=== PATIENT | male | born 1940 | race African-American/Black ===

== ENCOUNTER 2025-02-21 16:57 | Inpatient (IN) | payer OTHER, MEDICARE ==
[~2025-02-21] VITALS: Ht 170.2 cm; Wt 81.6 kg
[2025-02-21] MEDS ORDERED: KETOROLAC 30MG/ML VIAL IV ONE (17:15)
[2025-02-21 18:50] LABS: PLATELET 226 x1000/uL (130-400); RED BLOOD CELL COUNT 3.74 mill/uL (4.7-6.1); RED CELL DISTRIBUTION WIDTH 15.5 % (11.6-14.6)
[2025-02-21] MEDS: KETOROLAC 30MG/ML VIAL IV NR (18:58)
[2025-02-21] MEDS: MORPHINE SULFATE 2 MG/ML INJ (NOT FOR IM USE) IV NR (18:59)
[2025-02-21 19:09] LABS: CREATININE 1.4 mg/dL (0.6-1.3); UREA NITROGEN BLOOD 25.0 mg/dL (9-23)
[2025-02-21 19:23] LABS: INR 1.0
[2025-02-21] MEDS: FUROSEMIDE 100MG/10ML VIAL IV NR (19:59)
[2025-02-21] MEDS: INSULIN REGULAR (HUMULIN R) 1000UNITS/10ML VIAL IV NR (20:02)
[2025-02-21] MEDS: DEXTROSE 50% WATER 50ML SYRINGE IV NR (20:05)
[2025-02-21] MEDS: CALCIUM GLUCONATE 1GM PREMIX 50 ML IV NR (20:17)
[2025-02-21] MEDS ORDERED: IPRATROPIUM/ALBUTEROL 0.5-3(2.5)MG/3ML NEB HHN PRN (20:30)
[2025-02-21] MEDS ORDERED: CLONIDINE 0.1MG TABLET PO PRN (20:30)
[2025-02-21] MEDS ORDERED: ONDANSETRON HCL 4MG/2ML INJ IV PRN (20:30)
[2025-02-21] MEDS ORDERED: DOCUSATE SODIUM 100MG CAPSULE PO PRN (20:30)
[2025-02-21] MEDS ORDERED: ACETAMINOPHEN 325MG TABLET PO PRN ×2 (20:30)
[2025-02-21] MEDS ORDERED: GUAIFENESIN 200MG/10ML SUGAR FREE UDC PO PRN (20:30)
[2025-02-21 20:38] LABS: CREATININE 1.6 mg/dL (0.6-1.3); UREA NITROGEN BLOOD 27.0 mg/dL (9-23)
[2025-02-21] MEDS: SODIUM CHLORIDE 0.9% 1,000 ML IV SCH (20:43)
[2025-02-21 21:28] VITALS: PULSE 72; RESP 20; O2SAT 96
[2025-02-21] MEDS: ALBUTEROL (0.083%) 2.5MG/3ML NEB HHN SCH (21:28)
[2025-02-21] MEDS ORDERED: SODIUM POLYSTYRENE SULFONATE 15 G/60 ML BOT PO NR (21:45)
[2025-02-21 22:08] VITALS: BP 117/59; PULSE 81; RESP 17; TEMP 37; O2SAT 97
[2025-02-21 22:20] VITALS: BP 117/59; PULSE 81; RESP 17; TEMP 37.0296
[2025-02-21 23:09] LABS: TROPONIN I HIGH SENSITIVITY 5 ng/L (3.0-53)
[2025-02-22] VITALS: BP 103/56; PULSE 91; RESP 17; TEMP 36.3; O2SAT 97
[2025-02-22] MEDS ORDERED: ALLO100T PO (02:12)
[2025-02-22] MEDS ORDERED: FLUT1BLS9 IH (02:12)
[2025-02-22] MEDS ORDERED: ATOR-2 PO (02:12)
[2025-02-22] MEDS ORDERED: TAMS-54 (02:12)
[2025-02-22] MEDS ORDERED: LISI-648 (02:12)
[2025-02-22 04:00] VITALS: BP 119/69; PULSE 89; RESP 16; TEMP 37; O2SAT 95
[2025-02-22 06:31] LABS: BASOPHILS % 0.5 % (0.0-2.0); EOSINOPHILS % 0.5 % (0.0-5.0); HEMATOCRIT. 30.1 % (42.0-52.0); HEMOGLOBIN. 9.4 g/dL (14.0-18.0); LYMPHOCYTES % 8.9 % (20.0-50.0); MEAN PLATELET VOLUME 7.9 fl (7.4-10.4); MONOCYTES % 8.9 % (2.0-8.0); NEUTROPHILS % 81.2 % (40.0-76.0); PLATELET 192 x1000/uL (130-400); RED BLOOD CELL COUNT 3.48 mill/uL (4.7-6.1); RED CELL DISTRIBUTION WIDTH 15.7 % (11.6-14.6)
[2025-02-22 06:56] LABS: TRIGLYCERIDE 29 mg/dL (0-150)
[2025-02-22 06:57] LABS: CREATININE 1.4 mg/dL (0.6-1.3); UREA NITROGEN BLOOD 25 mg/dL (9-23)
[2025-02-22 06:58] LABS: LDL CHOLESTEROL 29 mg/dL (5-100)
[2025-02-22 06:59] LABS: ASPARTATE AMINOTRANSFERASE 16 IU/L (<34); BILIRUBIN DIRECT 0.2 mg/dL (<=3.0)
[2025-02-22 07:00] LABS: BILIRUBIN TOTAL 0.7 mg/dL (0.1-1.0); PROTEIN TOTAL 5.6 g/dL (6.0-8.3)
[2025-02-22 08:00] VITALS: BP 137/78; PULSE 81; RESP 18; TEMP 36.1; O2SAT 98
[2025-02-22] MEDS: ENOXAPARIN 30MG/0.3ML SYR SUBCUT SCH (08:51)
[2025-02-22 12:00] VITALS: BP 129/72; PULSE 89; RESP 18; TEMP 36.5; O2SAT 97
[2025-02-22] MEDS ORDERED: DEXTROSE 50% WATER 50ML SYRINGE IV SCH (13:15)
[2025-02-22] MEDS: INSULIN REGULAR (HUMULIN R) 1000UNITS/10ML VIAL IV SCH (13:15)
[2025-02-22] MEDS: SODIUM ZIRCONIUM CYCLOSILICATE 10GM/PACKET PO SCH (14:11)
[2025-02-22] MEDS ORDERED: LACTULOSE 20G/30ML UDC PO PRN (15:00)
[2025-02-22 16:00] VITALS: BP 136/68; PULSE 86; RESP 17; TEMP 35.8; O2SAT 97
[2025-02-22] MEDS: FERROUS SULFATE 325MG TABLET PO SCH (16:38)
[2025-02-22 20:00] VITALS: BP 132/79; PULSE 85; RESP 16; TEMP 36.4; O2SAT 95
[2025-02-22 23:01] LABS: CLARITY URINE CLEAR (CLEAR); COLOR URINE YELLOW (YELLOW); GLUCOSE URINE NEGATIVE (NEGATIVE); KETONES URINE NEGATIVE (NEGATIVE); LEUKOCYTE ESTERASE URINE NEGATIVE (NEGATIVE); NITRITE URINE NEGATIVE (NEGATIVE); OCCULT BLOOD URINE NEGATIVE (NEGATIVE); PH URINE 5.0 (4.5-8.0); PROTEIN URINE NEGATIVE (NEGATIVE); SPECIFIC GRAVITY URINE 1.015 (1.005-1.030); UROBILINOGEN URINE 0.2 E.U./dL (0.2-1.0)
[2025-02-23] VITALS: BP 138/77; PULSE 84; RESP 17; TEMP 36.2
[2025-02-23 00:24] VITALS: BP 136/63; PULSE 86; TEMP 97.8; O2SAT 96
== END 2025-02-23 03:21 | disposition short-term general hospital (02) | DRG 536 ==
LOC: ER 16:57 → 5WST 19:20 → EDBEDREQ 19:21 → EDBEDREQSVC 19:21 → EDBEDREQTM 19:21 → ENRESERV 19:38
PROVIDERS: ADMIT Hospitalist; ATTEND Hospitalist
DX: S72.142A Displaced intertrochanteric fracture of left femur, initial encounter for closed fracture (principal); N17.9 Acute kidney failure, unspecified; E78.5 Hyperlipidemia, unspecified; E87.5 Hyperkalemia; N40.0 Benign prostatic hyperplasia without lower urinary tract symptoms; D64.9 Anemia, unspecified; I10 Essential (primary) hypertension; J45.909 Unspecified asthma, uncomplicated; M10.9 Gout, unspecified; R73.9 Hyperglycemia, unspecified; Z55.6 Problems related to health literacy; Z79.899 Other long term (current) drug therapy; W01.0XXA Fall on same level from slipping, tripping and stumbling without subsequent striking against object, initial encounter; Y93.89 Activity, other specified; Y92.89 Other specified places as the place of occurrence of the external cause; Y99.8 Other external cause status
CPT/HCPCS: 36415; 73502; 73552; 80048; 80061; 80076; 81003; 82550; 83036; 83540; 83550; 83880; 84132; 84443; 84484; 85025; 85027; 86850; 86900; 93005; 94070; 94640; 94664; 98960; 99291; A4606; J0610; J1815; J1885; J1938; J2270; J7030